=== PATIENT | female | born 1995 | race Caucasian/White ===

== ENCOUNTER 2020-11-12 14:17 | Emergency (ER) | payer BC ==
--- NOTE | 2020-11-12 14:31 | EDM.PDOC ---
ED HPI GENERAL MEDICAL PROBLEM - General Chief Complaint: ENT Problem Stated Complaint: RIGHT EAR INFECTION Time Seen by Provider: 11/12/20 14:31 Source of Information: Reports: Patient - History of Present Illness INITIAL COMMENTS - FREE TEXT/NARRATIVE: Bran, 25-year-old female, presents today with right ear pain. States this started yesterday and has progressively worsened after a gradual short-lived improvement last evening. She has had ear infections in the past but is been several years ago and is never been a recurrent see issue. She has no other concerns or complaints. Onset Date: 11/04/20 Duration: Day(s): Location: Reports: Head - Related Data Allergies Allergy/AdvReac Type Severity Reaction Status Date / Time diphenhydramine Allergy Rash Verified 11/12/20 14:33 [From Benadryl] Home Meds: Home Meds Amoxicillin 875 mg PO BID 10 Days #18 tab 11/12/20 [Rx] Past Medical History HEENT History: Reports: Otitis Media (infrequent as adult) Cardiovascular History: Reports: None Respiratory History: Reports: None Gastrointestinal History: Reports: Irritable Bowel Syndrome Social & Family History - Family History Family Medical History: No Pertinent Family History ED ROS GENERAL - Review of Systems Review Of Systems: Comprehensive ROS is negative, except as noted in HPI. ED EXAM, GENERAL - Physical Exam Exam: See Below Free Text/Narrative:: Alert, oriented, in mild distress. HEENT is negative to discharge nor deformity. PERRLA no icterus no injection. Nasal passages and oropharynx are pink and moist with no erythema, I do not appreciate any hypertrophy of the posterior pharynx. There is mild lymph node to the right superior anterior chain with minimal tenderness but some noted. Left tympanic membrane and auditory canal are clear and free of any evidence of injury or infection. Right tympanic membrane is erythematous bulging with a small vesicle in the anterior third. There is slight motion tenderness of the right auricle. Thorax is clear. Cardiac is regular no murmur. Course - Vital Signs Last Recorded V/S: Last Vital Signs Temp 96.8 F L 11/12/20 14:28 Pulse 102 H 11/12/20 14:28 Resp 16 11/12/20 14:28 BP 133/89 11/12/20 14:28 Pulse Ox 96 11/12/20 14:28 - Orders/Labs/Meds Meds: Medications Discontinued Medications Generic Name Dose Route Start Last Admin Trade Name Anastacio PRN Reason Stop Dose Admin Amoxicillin 2,000 mg 11/12/20 14:38 Amoxil PO 11/12/20 14:39 ONETIME ONE Departure - Departure Time of Disposition: 14:44 Disposition: Home, Self-Care 01 Condition: Good Clinical Impression: Otitis media - Discharge Information *PRESCRIPTION DRUG MONITORING PROGRAM REVIEWED*: Not Applicable *COPY OF PRESCRIPTION DRUG MONITORING REPORT IN PATIENT QUIQUE: Not Applicable Prescriptions: Amoxicillin 875 mg PO BID 10 Days #18 tab Instructions: Otitis Media, Adult, [id number] Referrals: PCP,Not In Area [Primary Care Provider] - Forms: ED Department Discharge Additional Instructions: Amoxicillin, 1 tablet twice daily for 10 days. You were given the initial dose here in the emergency department and [facility] will have a prescription waiting for you tomorrow morning. You may take Tylenol or ibuprofen for discomfort. You should consider eating yogurt or lactobacillus capsules at least twice daily to reduce the effects of abdominal irritation from the antibiotic. Make sure you maintain good fluid hygiene. Follow-up if not improving. Sepsis Event Note (ED) - Focused Exam Vital Signs: Vital Signs Temp Pulse Resp BP Pulse Ox 11/12/20 14:28 96.8 F L 102 H 16 133/89 96 - Problem List & Annotations (1) Otitis media SNOMED Code(s): 84719196 Code(s): H66.90 - OTITIS MEDIA, UNSPECIFIED, UNSPECIFIED EAR Status: Acute Current Visit: Yes Qualifiers: Otitis media type: serous Chronicity: acute Laterality: right Recurrence: not specified as recurrent Qualified Code(s): H65.01 - Acute serous otitis media, right ear - Problem List Review Problem List Initiated/Reviewed/Updated: Yes - Assessment/Plan Plan: Amoxicillin, 1 tablet twice daily for 10 days. You were given the initial dose here in the emergency department and [facility] will have a prescription waiting for you tomorrow morning. You may take Tylenol or ibuprofen for discomfort. You should consider eating yogurt or lactobacillus capsules at least twice daily to reduce the effects of abdominal irritation from the antibiotic. Make sure you maintain good fluid hygiene. Follow-up if not improving.
[2020-11-12] MEDS ORDERED: Amoxicillin 500 MG Cap PO ONE (14:38)
== END 2020-11-12 14:50 | disposition home or self-care (01) ==
LOC: KA.ED 14:17
DX: H66.91 Otitis media, unspecified, right ear (principal); Z88.8 Allergy status to other drugs, medicaments and biological substances
CPT/HCPCS: 99282; 99283; A9270-GY

== ENCOUNTER 2021-11-21 10:43 | Emergency (ER) | payer BC ==
[2021-11-21] MEDS: Ketorolac 30 MG/ML SDV IM ONE (11:06)
[2021-11-21] MEDS: Ketorolac 30 MG/ML SDV ONE (11:11)
== END 2021-11-21 12:13 | disposition home or self-care (01) ==
LOC: KA.ED 10:43
DX: S06.0X0A Concussion without loss of consciousness, initial encounter (principal); M54.2 Cervicalgia; M25.511 Pain in right shoulder; Z88.8 Allergy status to other drugs, medicaments and biological substances; W00.0XXA Fall on same level due to ice and snow, initial encounter
CPT/HCPCS: 72040; 73030; 96372; 99283; J1885

== ENCOUNTER 2022-06-07 17:07 | Emergency (ER) | payer BC | END 2022-06-07 20:00 | disposition home or self-care (01) | LOC: KA.ED 17:07 | DX: B37.3 Candidiasis of vulva and vagina (principal); Z88.8 Allergy status to other drugs, medicaments and biological substances | CPT/HCPCS: 81001; 99283 ==

== ENCOUNTER 2022-09-21 10:57 | Emergency (ER) | payer BC, MEDICAID, OTHER ==
[2022-09-21] MEDS ORDERED: cefTRIAXone 1 GM Vial IM ONE (11:57)
[2022-09-21] MEDS ORDERED: Lidocaine 1% 5 ML VIAL ONE (12:05)
[2022-09-21] MEDS ORDERED: Lidocaine 1% 5 ML VIAL INJECT ONE (12:18)
== END 2022-09-21 12:27 | disposition home or self-care (01) ==
LOC: KA.ED 10:57
DX: H65.193 Other acute nonsuppurative otitis media, bilateral (principal); Z88.8 Allergy status to other drugs, medicaments and biological substances; Z79.899 Other long term (current) drug therapy
CPT/HCPCS: 96372; 99282; 99283; J0696

== ENCOUNTER 2022-09-28 13:40 | Emergency (ER) | payer BC ==
[2022-09-28] MEDS ORDERED: Montelukast 10 MG Tab PO ONE (14:35)
== END 2022-09-28 14:50 | disposition home or self-care (01) ==
LOC: KA.ED 13:40
DX: H73.93 Unspecified disorder of tympanic membrane, bilateral (principal); H69.93 Unspecified Eustachian tube disorder, bilateral; Z88.8 Allergy status to other drugs, medicaments and biological substances; Z79.899 Other long term (current) drug therapy
CPT/HCPCS: 99282; A9270; 99283

== ENCOUNTER 2023-03-21 16:55 | Emergency (ER) | payer MEDICARE, BC ==
[2023-03-21] MEDS ORDERED: Ibuprofen 600 MG Tab PO ONE (17:05)
== END 2023-03-21 18:20 | disposition home or self-care (01) ==
LOC: KA.ED 16:55
DX: S93.492A Sprain of other ligament of left ankle, initial encounter (principal); S83.92XA Sprain of unspecified site of left knee, initial encounter; Z88.8 Allergy status to other drugs, medicaments and biological substances; W10.2XXA Fall (on)(from) incline, initial encounter
CPT/HCPCS: 73562-LT; 73610-LT; 99283; A9270-GY

== ENCOUNTER 2023-04-22 16:47 | Emergency (ER) | payer MEDICARE, BC ==
[2023-04-22 17:09] LABS: BASOPHILS ABSOLUTE AUTO 0.05 10^3/uL (0.00-0.10); BASOPHILS PERCENT AUTO 0.7 % (0.0-1.0); EOSINOPHILS ABSOLUTE AUTO 0.26 10^3/uL (0.10-0.30); EOSINOPHILS PERCENT AUTO 3.6 % (1.0-3.0); HEMATOCRIT 41.9 % (37.0-47.0); HEMOGLOBIN 13.8 g/dL (12.0-16.0); LYMPHOCYTES PERCENT AUTO 39.7 % (20.0-40.0); MEAN CORPUSCULAR HEMOGLOBIN 27.9 pg (27.0-31.0); MEAN CORPUSCULAR HGB CONC 32.9 g/dL (32.0-36.0); MEAN CORPUSCULAR VOLUME 84.8 fL (82.0-92.0); MEAN PLATELET VOLUME 9.4 fL (7.4-10.4); MONOCYTES ABSOLUTE AUTO 0.54 10^3/uL (0.10-0.80); MONOCYTES PERCENT AUTO 7.4 % (2.0-8.0); NEUTROPHILS ABSOLUTE AUTO 3.55 10^3/uL (2.50-7.00); NEUTROPHILS PERCENT AUTO 48.6 % (50.0-70.0); PLATELET COUNT,PLT 333 10^3/uL (150-400); RED BLOOD CELL COUNT 4.94 10^6/uL (3.80-5.50); RED CELL DISTRIBUTION WIDTH 12.6 % (11.5-14.5)
[2023-04-22 17:32] LABS: ANION GAP 12.3 mmol/L (5-15); CALCIUM 8.8 mg/dL (8.7-10.3); CARBON DIOXIDE,CO2 27.7 mmol/L (21.0-32.0); CREATININE 0.66 mg/dL (0.51-1.17); EST CRCL DRUG DOSING (CG) 109.58 mL/min; TSH ULTRASENSITIVE 0.877 uIU/mL (0.340-4.820)
== END 2023-04-22 18:07 | disposition home or self-care (01) ==
LOC: KA.ED 16:47
DX: H81.12 Benign paroxysmal vertigo, left ear (principal); A69.20 Lyme disease, unspecified; R53.83 Other fatigue; Z88.8 Allergy status to other drugs, medicaments and biological substances
CPT/HCPCS: 36415; 80048; 84443; 85025; 87476; 99284; A9270-GY

== ENCOUNTER 2023-06-16 15:42 | Emergency (ER) | payer MEDICARE, BC ==
[2023-06-16 15:53] VITALS: BP 126/85; PULSE 94
[2023-06-16] MEDS: Ketorolac 30 MG/ML SDV IVPUSH ONE (16:34)
[2023-06-16] MEDS: Water For Injection, Sterile 20 ML ONE (16:37)
[2023-06-16] MEDS: methylPREDNISolone Sodium Succinate 125 MG/2 ML SDV IVPUSH ONE (16:38)
[2023-06-16] MEDS: Sodium Chloride 0.9% 10 ML Syringe FLUSH PRN (16:42)
== END 2023-06-16 17:01 | disposition home or self-care (01) ==
LOC: KA.ED 15:42
DX: S16.1XXA Strain of muscle, fascia and tendon at neck level, initial encounter (principal); Z88.8 Allergy status to other drugs, medicaments and biological substances; Z79.899 Other long term (current) drug therapy
CPT/HCPCS: 72040; 96365; 96375; 99283; 99283-25; J1885; J2800; J2930; J3490

== ENCOUNTER 2023-06-24 19:04 | Emergency (ER) | payer MEDICARE, BC ==
[2023-06-24] MEDS: Diphtheria,Pertussis(Acell),Tetanus Vaccine 0.5 ML Syringe IM ONE (19:58)
== END 2023-06-24 20:27 | disposition home or self-care (01) ==
LOC: KA.ED 19:04
DX: S61.251A Open bite of left index finger without damage to nail, initial encounter (principal); S61.253A Open bite of left middle finger without damage to nail, initial encounter; Z88.8 Allergy status to other drugs, medicaments and biological substances; W54.0XXA Bitten by dog, initial encounter
CPT/HCPCS: 73120-LT; 90471; 90715; 99283; 99283-25

== ENCOUNTER 2024-12-05 11:08 | Emergency (ER) | payer BC, OTHER | END 2024-12-05 12:26 | disposition home or self-care (01) | LOC: KA.ED 11:08 | DX: J10.1 Influenza due to other identified influenza virus with other respiratory manifestations (principal); Z79.899 Other long term (current) drug therapy; Z88.8 Allergy status to other drugs, medicaments and biological substances; Z90.49 Acquired absence of other specified parts of digestive tract | CPT/HCPCS: 87428-QW; 99283; 99284 ==